=== PATIENT | female | born 1965 | race American Indian/Alaskan Native ===

== ENCOUNTER 2016-12-07 13:30 | Emergency (ER) | payer MEDICAID ==
[2016-12-07 13:41] VITALS: TEMP 98.2; O2SAT 96
[2016-12-07] MEDS ORDERED: Sodium Chloride 0.9% 1,000 ML IV STA (14:10)
--- NOTE | 2016-12-07 14:35 | ED PDOC ---
Arrival/HPI - General Historian: Patient - History of Present Illness Time/Duration: 1 week Symptom Onset: Gradual Symptom Course: Worsening Quality: Aching, Throbbing Severity Level: 10 - General Chief Complaint: Medical Clearance Time Seen by Provider: 12/07/16 13:46 - History of Present Illness Narrative History of Present Illness (Text): 12/07/16 14:31 51yr old female presents today with right sided facial swelling. pt states she [place] [facility] [place] and pain almost 1 week ago and was discharge home on clindamycin. pt states she has been taking clindamycin as prescribed. pt states pain and swelling has worsened. denies fever/chills. no cp or sob. pt now complaining of erythema along cheek. denies trismus or drooling. + smoker. no other complaints. (Allison Zayas) Past Medical History - Provider Review Nursing Documentation Reviewed: Yes - Travel History Have you recently traveled outside [place] w/in the past 3 mons?: No - Tetanus Immunization Tetanus Immunization: Unknown - Reproductive Menopause: Yes - Pulmonary Hx Respiratory Disorders: Yes Hx Chronic Obstructive Pulmonary Disease (COPD): Yes - Musculoskeletal/Rheumatological Hx Musculoskeletal Disorders: Yes Other/Comment: RSD - Psychiatric Hx Substance Use: No - Surgical History Hx Musculoskeletal Surgery: Yes (right arm) Family/Social History - Physician Review Nursing Documentation Reviewed: Yes Family/Social History: Unknown Family HX Smoking Status: Light Smoker < 10 Cigarettes Daily Hx Alcohol Use: No Hx Substance Use: No Allergies/Home Meds Allergies/Adverse Reactions: Allergies Penicillins Allergy (Verified 12/07/16 13:40) ANAPHYLAXIS Home Medications: Home Meds Medication Instructions Recorded Confirmed Clindamycin HCl [Cleocin HCl] 150 mg PO Q6 12/07/16 12/07/16 Gabapentin [Neurontin] 600 mg PO DAILY 12/07/16 12/07/16 Zolpidem [Ambien] 10 mg PO HS 12/07/16 12/07/16 Review of Systems - Review of Systems Constitutional: absent: Fatigue, Fevers Eyes: absent: Vision Changes, Photophobia, Eye Pain ENT: absent: Sore Throat, Sinus Congestion Respiratory: absent: SOB, Cough Cardiovascular: absent: Chest Pain, Palpitations Gastrointestinal: absent: Abdominal Pain, Nausea, Vomiting Genitourinary Female: absent: Dysuria Musculoskeletal: Arthralgias (right facial pain and swelling). absent: Back Pain, Neck Pain Skin: Cellulitis Neurological: absent: Headache, Dizziness Physical Exam Vital Signs Reviewed: Yes Temperature: Afebrile Blood Pressure: Normal Pulse: Regular Respiratory Rate: Normal Appearance: Positive for: Well-Appearing, Non-Toxic, Comfortable Pain Distress: None Mental Status: Positive for: Alert and Oriented X 3 - Systems Exam Head: Present: Swelling (+ right sided facial swelling + erythema and induration noted along the cheek and nasolabial fold. ) Pupils: Present: PERRL Extroacular Muscles: Present: EOMI Conjunctiva: Present: Normal Ears: Present: Normal, NORMAL TM Mouth: Present: Moist Mucous Membranes, Normal Lips, Normal Tounge. No: Drooling, Trismus, Normal Teeth (Poor dentition, multiple dental fractures along the right upper gumline. ) Pharnyx: No: ERYTHEMA, EXUDATE Nose (External): Present: Atraumatic. No: Abrasion, Contusion, Laceration Nose (Internal): Present: Normal Inspection, Clear Mucous. No: Septal Hematoma Neck: Present: Normal Range of Motion, Lymphadenopathy, Trachea Midline. No: MIDLINE TENDERNESS, Paraspinal Tenderness Respiratory/Chest: Present: Clear to Auscultation, Good Air Exchange. No: Respiratory Distress, Accessory Muscle Use Cardiovascular: Present: Regular Rate and Rhythm, Normal S1, S2. No: Murmurs Skin: Present: Warm, Dry Psychiatric: Present: Alert, Oriented x 3 Vital Signs Temp Pulse Resp BP Pulse Ox 12/07/16 16:27 79 18 133/74 96 12/07/16 15:11 89 18 137/79 96 12/07/16 13:40 98.2 F 97 H 16 138/82 96 Medical Decision Making ED Course and Treatment: 12/07/16 14:37 I was available for consultation during PA evaluation. The chart was reviewed by me, and I agree with disposition. The documented history was done by the physician seismograph computer. The documented physical exam was done by the physician seismograph computer. The documented procedures were done by the physician seismograph computer. (Calvin Bernal) 12/07/16 14:35 51yr old female with right sided facial swelling, worsening. now with erythema and induration. currently on clindamycin PO cbc WNL cmp WNL Toradol normal saline IV CT maxillofacial with IV contrast; FINDINGS: NASAL BONES: Unremarkable. ORBITS: Unremarkable. PARANASAL SINUSES/ MASTOIDS: There is near complete opacification of the right maxillary sinus MAXILLA: Dental disease is seen in the maxilla and mandible with no obvious bony destruction. Inflammatory changes are seen in the adjacent soft tissue. There is a 7 mm area of hypodensity anterior to the right side of the maxilla which may represent a developing abscess. This is seen on image 79 series 4. MANDIBLE/ TEMPOROMANDIBULAR JOINTS: Unremarkable. SKULL BASE: Unremarkable. TEMPORAL BONES: Middle ears and mastoid grossly unremarkable. OTHER FINDINGS: Enlarged lymph nodes are seen on the right side adjacent to the angle of the mandible. The largest node measures 15 mm as seen on image 100 series 4. IMPRESSION: Subcutaneous inflammatory changes with probable developing abscess anterior to the right alveolar ridge. Adenopathy adjacent to the angle of the mandible on the right. Severe mucosal thickening in the right maxillary sinus pt reassessment; pt feeling better after medications; discussed results in depth with patient. advised pt that she will need to be transferred to [facility] for IV abx. pt states she has a dentist and she is feeling much better and she will go home and f/u with her dentist 12/07/16 17:59 pt given dose of clindamcyin IV. Patient has been advised to not leave the emergency room but has decided to go AGAINST MEDICAL ADVICE. The patient possesses capacity to make decisions and has voiced understanding to all my warnings of potential worsening of the condition for which medical care was sought. I have discussed all known and potential risks and consequences to the patient leaving AGAINST MEDICAL ADVICE. Patient is leaving against medical advise. AMA form signed. witness by ADELINA Keys. will give rx for clindamycin 300mg po as patient was only taking 150mg. pt was advised to return if she chooses to continue her care. she was advised immediate f/u with dentist. and immediate return if symptoms worsen,persist or if new symptoms develop. impression; Dental abscess Motrin every 6 hours as needed for pain Clindamycin 3 times daily 7 days Follow up with a dentist within the next 2 days Return immediately if symptoms worsen persist or if new concerning symptoms develop: high fevers, increasing pain, redness, swelling or purulent discharge. (Allison Zayas) - Lab Interpretations Lab Results: 12/07/16 14:40 12/07/16 14:40 Lab Results 12/07/16 14:40: WBC 6.6, RBC 4.85, Hgb 13.4, Hct 41.8, MCV 86.2, MCH 27.6, MCHC 32.1, RDW 15.4 H, Plt Count 168, MPV 10.7, Gran % 66.1, Lymph % (Auto) 19.2 L, [place] % (Auto) 11.9 H, Eos % (Auto) 2.6, Baso % (Auto) 0.2, Gran # 4.39, Lymph # 1.3, [place] # 0.8 H, Eos # 0.2, Baso # 0.01 12/07/16 14:40: Sodium 144, Potassium 4.8, Chloride 103, Carbon Dioxide 32, Anion Gap 14, BUN 10, Creatinine 0.9, Est GFR ( Amer) > 60, Est GFR (Non- Af Amer) > 60, Random Glucose 83, Calcium 9.3, Total Bilirubin 0.6, AST 22, ALT 32, Alkaline Phosphatase 111, Total Protein 7.8, Albumin 4.0, Globulin 3.7, Albumin/Globulin Ratio 1.1 - RAD Interpretation Radiology Orders: 12/07/16 14:14 MAXILLOFACIAL W/CONTRAST [CT] Stat - Medication Orders Current Medication Orders: Discontinued Medications Sodium Chloride (Sodium Chloride 0.9%) 1,000 mls @ 999 mls/hr IV .Q1H1M STA Stop: 12/07/16 15:10 Last Admin: 12/07/16 14:46 Dose: 999 mls/hr Clindamycin Phosphate 600 mg/ (Sodium Chloride) 54 mls @ 108 mls/hr IVPB STAT STA PRN Reason: Protocol Stop: 12/07/16 17:34 Last Admin: 12/07/16 17:40 Dose: 108 mls/hr Iohexol (Omnipaque 350 100 Ml) Confirm Administered Dose 350 mg .ROUTE .STK-MED ONE Stop: 12/07/16 16:03 Ketorolac Tromethamine (Toradol) 30 mg IVP STAT STA Stop: 12/07/16 14:15 Last Admin: 12/07/16 14:46 Dose: 30 mg Disposition/Present on Arrival - Present on Arrival Any Indicators Present on Arrival: No History of DVT/PE: No History of Uncontrolled Diabetes: No Urinary Catheter: No History of Decub. Ulcer: No History Surgical Site Infection Following: None - Disposition Have Diagnosis and Disposition been Completed?: Yes Disposition Time: 18:03 Patient Plan: Other (AMA) - Disposition Diagnosis: Dental abscess Disposition: AGAINST MEDICAL ADVICE Patient Problems: Current Active Problems Problem Status Onset Dental abscess Acute Condition: FAIR Discharge Instructions (ExitCare): Dental Abscess (ED) Additional Instructions: RETURN IF YOU WISH TO CONTINUE YOUR CARE Motrin every 6 hours as needed for pain Clindamycin 3 times daily 7 days Follow up with a dentist within the next 2 days Return immediately if symptoms worsen persist or if new concerning symptoms develop: high fevers, increasing pain, redness, swelling or purulent discharge. Prescriptions: Clindamycin [Cleocin] 300 mg PO TID #21 cap Ibuprofen [Motrin] 600 mg PO Q6H PRN #20 tab PRN Reason: pain/fever reduction Referrals: Eric Lyon DMD [Staff Provider] - Follow up with primary Jj Solis MD [Medical Doctor] - Follow up with primary Forms: [employer] (Albanian), WORK NOTE
[2016-12-07 14:53] LABS: BASO # 0.01 K/mm3 (0.0-2.0); BASO % 0.2 % (0.0-3.0); EOS # 0.2 (0.0-0.7); EOS % 2.6 % (1.5-5.0); GRAN # 4.39 (1.4-6.5); GRAN % 66.1 % (50.0-68.0); HEMOGLOBIN 13.4 gm/dL (12.0-16.0); LYMPH # 1.3 (1.2-3.4); LYMPH % 19.2 % (22.0-35.0); MEAN CELL VOLUME 86.2 fL (80.0-105.0); MEAN CORPUSCULAR HEMOGLOBIN 27.6 pg (25.0-35.0); MEAN CORPUSCULAR HGB CONC 32.1 g/dl (31.0-37.0); MEAN PLATELET VOLUME 10.7 fl (7.0-11.0); MONO # 0.8 (0.1-0.6); MONO % 11.9 % (1.0-6.0); PLATELET COUNT 168 10^3/uL (120.0-450.0); RBC 4.85 10^6/uL (3.5-6.1); RED CELL DISTRIBUTION WIDTH 15.4 % (11.5-14.5); WHITE BLOOD COUNT 6.6 10^3/ul (4.5-11.0)
[2016-12-07 15:03] LABS: ALB/GLOB RATIO 1.1 (1.1-1.8); ALT/SGPT 32 U/L (7-56); AST/SGOT 22 U/L (15-39); BLOOD UREA NITROGEN 10 mg/dL (7-21); CALCIUM 9.3 mg/dL (8.4-10.5); GFR AFRICAN-AMERICAN > 60; GFR NON-AFRICAN AMERICAN > 60
[2016-12-07 15:12] VITALS: RESP 18
[2016-12-07] MEDS ORDERED: Iohexol 350 MG/100 ML VIAL ONE (16:02)
[2016-12-07 16:28] VITALS: BP 133/74; PULSE 79
--- NOTE | 2016-12-07 16:50 | CT ---
PROCEDURE: CT MAXILLOFACIAL BONES WITH CONTRAST HISTORY: right sided facial swelling/erythema. no injury COMPARISON: None. TECHNIQUE: Contiguous axial CT images of the maxillofacial bones were obtained following administration of IV contrast. Coronal and sagittal reformats were generated. Intravenous contrast Dose: 100 cc of Omni 350 Radiation dose: Total exam DLP = 773 mGy-cm. This CT exam was performed using one or more of the following dose reduction techniques: Automated exposure control, adjustment of the mA and/or kV according to patient size, and/or use of iterative reconstruction technique. FINDINGS: NASAL BONES: Unremarkable. ORBITS: Unremarkable. PARANASAL SINUSES/ MASTOIDS: There is near complete opacification of the right maxillary sinus MAXILLA: Dental disease is seen in the maxilla and mandible with no obvious bony destruction. Inflammatory changes are seen in the adjacent soft tissue. There is a 7 mm area of hypodensity anterior to the right side of the maxilla which may represent a developing abscess. This is seen on image 79 series 4. MANDIBLE/ TEMPOROMANDIBULAR JOINTS: Unremarkable. SKULL BASE: Unremarkable. TEMPORAL BONES: Middle ears and mastoid grossly unremarkable. OTHER FINDINGS: Enlarged lymph nodes are seen on the right side adjacent to the angle of the mandible. The largest node measures 15 mm as seen on image 100 series 4. IMPRESSION: Subcutaneous inflammatory changes with probable developing abscess anterior to the right alveolar ridge. Adenopathy adjacent to the angle of the mandible on the right. Severe mucosal thickening in the right maxillary sinus
== END 2016-12-07 18:05 | disposition left against medical advice (07) ==
LOC: ED 13:30
DX: K04.7 Periapical abscess without sinus (principal)
CPT/HCPCS: 70488; 80053; 85025; 87040; 96365; 96375; 99284; J1885; J7040; Q9967